=== PATIENT | female | born 2000 | race Two or more races ===

== ENCOUNTER 2023-06-09 12:33 | Inpatient (IN) | payer MEDICAID, OTHER ==
[2023-06-09] VITALS (9 sets, daily range): BP systolic 92–102; BP diastolic 50–57; PULSE 64–97; RESP 15–20; TEMP 98.1–98.3; O2SAT 93–100
[~2023-06-09] VITALS: Ht 162.6 cm; Wt 55.0 kg
[2023-06-09 13:08] LABS: Basophils # (auto) 0.1 10 ^3/uL (0-0.2); Basophils % (auto) 0.4 % (0.0-2.0); Eosinophils # (auto) 0 10 ^3/uL (0-0.8); Eosinophils % (auto) 0.2 % (0.0-7.0); Hematocrit 30.2 % (36.0-46.0); Hemoglobin 9.6 g/dL (12.2-16.2); Lymphocytes # (auto) 2.6 10 ^3/uL (0.4-5.4); Mean Corpuscular Hemoglobin 28.2 pg (28.0-32.0); Mean Corpuscular Hgb Conc. 31.8 g/dL (32.0-36.0); Mean Corpuscular Volume 88.6 fL (80.0-100.0); Monocytes # (auto) 0.8 10 ^3/uL (0-1.3); Monocytes % (auto) 4.2 % (0.0-12.0); Neutrophils # (auto) 16.1 10 ^3/uL (1.6-8.6); Neutrophils % (auto) 82.2 % (37.0-80.0); Red Blood Cells 3.41 10^6/uL (4.0-5.20); Red Cell Distribution Width 15.3 % (11.8-14.3); White Blood Cell 19.6 10^3/uL (4.4-10.8)
[2023-06-09 13:22] LABS: Alanine Aminotransferase 16 U/L (7-40); Albumin 3.5 g/dL (3.2-4.8); Alkaline Phosphatase 62 U/L (46-116); Anion Gap 10 (5-15); Aspartate Aminotransferase 10 U/L (13-40); Bilirubin, Total 0.3 mg/dL (0.2-1.0); Blood Urea Nitrogen 18 mg/dL (9-23); Calcium 8.7 mg/dL (8.7-10.4); Carbon Dioxide 20 mmol/L (20-30); Chloride 108 mmol/L (98-107); Glucose 184 mg/dL (74-106); Magnesium 1.7 mg/dL (1.6-2.6); Potassium 4.2 mmol/L (3.5-5.1); Sodium 138 mmol/L (136-145); Total Protein 5.4 g/dL (5.7-8.2)
[2023-06-09] MEDS: SODIUM CHLORIDE 0.9% 1,000 ML IV ONE ×2 (14:04→14:21)
[2023-06-09 14:41] LABS: Basophils # (auto) 0 10 ^3/uL (0-0.2); Basophils % (auto) 0.2 % (0.0-2.0); Eosinophils # (auto) 0 10 ^3/uL (0-0.8); Monocytes # (auto) 0.5 10 ^3/uL (0-1.3); Neutrophils % (auto) 90.6 % (37.0-80.0)
[2023-06-09 14:43] LABS: Hematocrit 24.6 % (36.0-46.0); Lymphocytes # (auto) 1.2 10 ^3/uL (0.4-5.4); Lymphocytes % (auto) 6.3 % (10.0-50.0); Mean Corpuscular Hemoglobin 28.7 pg (28.0-32.0); Mean Corpuscular Hgb Conc. 32.7 g/dL (32.0-36.0); Mean Corpuscular Volume 87.8 fL (80.0-100.0); Monocytes % (auto) 2.9 % (0.0-12.0); Neutrophils # (auto) 16.5 10 ^3/uL (1.6-8.6); Red Cell Distribution Width 14.7 % (11.8-14.3); White Blood Cell 18.3 10^3/uL (4.4-10.8)
[2023-06-09] MEDS ORDERED: PIPERACILLIN-TAZOB 3.375GM 100 ML IV ONE (15:00)
[2023-06-09 15:38] LABS: Hematocrit 20.3 % (36.0-46.0)
[2023-06-09] MEDS ORDERED: HYDROcodone-ACET 5/325MG TAB PO PRN (15:45)
[2023-06-09] MEDS ORDERED: ACETAMINOPHEN 325 MG TAB PO PRN (15:45)
[2023-06-09] MEDS ORDERED: SODIUM CHLORIDE 0.9% 1,000 ML IV SCH (15:45)
[2023-06-09 15:49] LABS: Hemoglobin 6.7 g/dL (12.2-16.2)
[2023-06-09] MEDS ORDERED: HYDROmorphone HCL 2 MG/ML VL/or syr ONE (16:13)
[2023-06-09] MEDS ORDERED: MIDAZOLAM HCL 2MG/2ML 2ml VIAL (1mg/ml) ONE (16:13)
[2023-06-09] MEDS ORDERED: fentaNYL CITRATE 100 MCG/2 ML VL ONE (16:13)
[2023-06-09] MEDS ORDERED: DexAMETHasone SOD PHOS 10MG/1ML VIAL INJ ONE (16:14)
[2023-06-09] MEDS ORDERED: ePHEDrine SULFATE 50 MG/ML AMP ONE (16:14)
[2023-06-09] MEDS ORDERED: KETOROLAC TROMETH 30 MG/ML 1ML VIAL ONE (16:14)
[2023-06-09] MEDS ORDERED: GLYCOPYRROLATE 0.2 MG/ML 1ML VIAL ONE (16:14)
[2023-06-09] MEDS ORDERED: LIDOCAINE 2% (LOCAL ANESTH.) PF 5ml SDV ONE (16:14)
[2023-06-09] MEDS ORDERED: PROPOFOL 10 MG/ML 20 ML IV ONE (16:14)
[2023-06-09] MEDS ORDERED: ONDANSETRON HCL 4 MG/2 ML VIAL ONE (16:14)
[2023-06-09] MEDS ORDERED: LACT. RINGERS/OXYTOCIN 20UNITS 1,000 ML IV ONE (16:15)
[2023-06-09] MEDS ORDERED: SUCCINYLCHOLINE CHLORIDE 20 MG/ML 10ML VIAL IV ONE (16:15)
[2023-06-09] MEDS ORDERED: ceFAZolin 1GM/50ML 50 ML IV ONE (16:40)
[2023-06-09 17:00] LABS: INR 1.16 (0.9-1.15); Prothrombin Time 12.1 sec (9.3-11.8)
[2023-06-09] MEDS: LACT. RINGERS/OXYTOCIN 20UNITS 1,000 ML IV ONE (17:40)
[2023-06-09] MEDS ORDERED: HYDROmorphone HCL 2 MG/ML VL/or syr IV PRN (17:45)
[2023-06-09] MEDS ORDERED: FAMOTIDINE (10MG/ML) 2ML VL IV ONE (17:45)
[2023-06-09] MEDS: PIPERACILLIN-TAZOB 3.375GM 100 ML IV SCH (21:21)
[2023-06-09] MEDS: ONDANSETRON HCL 4 MG/2 ML VIAL IV ONE (21:28)
[2023-06-10] VITALS (12 sets, daily range): BP systolic 86–106; BP diastolic 42–60; PULSE 72–85; RESP 16–20; TEMP 37.1; O2SAT 93–98
[2023-06-10] MEDS: SODIUM CHLORIDE 0.9% 1,000 ML IV SCH (02:37)
[2023-06-10] MEDS ORDERED: ESCI1TAB36 PO (03:52)
[2023-06-10] MEDS ORDERED: BUSP7.5T8 PO (03:52)
[2023-06-10] MEDS ORDERED: DOXY50CA PO (03:52)
[2023-06-10] MEDS ORDERED: [UNRECOGNIZED DRUG - CODE] EX (03:52)
[2023-06-10 06:55] LABS: Urine Bacteria None Seen /hpf (None Seen)
[2023-06-10 06:58] LABS: Basophils # (auto) 0 10 ^3/uL (0-0.2); Basophils % (auto) 0.2 % (0.0-2.0); Eosinophils # (auto) 0 10 ^3/uL (0-0.8); Hematocrit 28.7 % (36.0-46.0); Hemoglobin 9.4 g/dL (12.2-16.2); Mean Corpuscular Hemoglobin 28.3 pg (28.0-32.0); Mean Corpuscular Hgb Conc. 32.9 g/dL (32.0-36.0); Monocytes # (auto) 0.4 10 ^3/uL (0-1.3); Monocytes % (auto) 3.6 % (0.0-12.0); Neutrophils % (auto) 87.2 % (37.0-80.0); Red Blood Cells 3.33 10^6/uL (4.0-5.20); Red Cell Distribution Width 16.2 % (11.8-14.3); White Blood Cell 11.5 10^3/uL (4.4-10.8)
[2023-06-10 07:08] LABS: Urine Blood 3+ /uL (Negative); Urine Clarity Turbid (Clear); Urine Color Light-Brown (Yellow); Urine Protein, UAD 1+ (Negative); Urine Specific Gravity 1.025 (1.001-1.035); Urine Urobilinogen Normal (Negative); Urine WBC 32 /hpf (0 - 5)
[2023-06-10 07:17] LABS: Amphetamine Screen, Urine Neg (NEGATIVE); Barbiturate Scree,Urine Neg (NEGATIVE); Benzodiazephine Screen, Urine Pos (NEGATIVE); Cannabinoid Screen, Urine Pos (NEGATIVE); Cocaine Screen, Urine Neg (NEGATIVE); Opiate Scree,Urine Neg (NEGATIVE); Phencyclidine Screen, Urine Neg (NEGATIVE)
[2023-06-10 07:18] LABS: Alanine Aminotransferase 11 U/L (7-40); Albumin 2.9 g/dL (3.2-4.8); Alkaline Phosphatase 47 U/L (46-116); Anion Gap 3 (5-15); Aspartate Aminotransferase 17 U/L (13-40); BUN/Creatinine Ratio 11.1 (10.0-20.0); Bilirubin, Total 0.5 mg/dL (0.2-1.0); Calcium 7.1 mg/dL (8.5-10.1); Carbon Dioxide 24 mmol/L (20-30); Chloride 112 mmol/L (98-107); Glucose 113 mg/dL (74-106); Sodium 139 mmol/L (136-145); Total Protein 4.2 g/dL (5.7-8.2)
[2023-06-10 07:28] LABS: Blood Urea Nitrogen 7 mg/dL (9-23)
== END 2023-06-10 14:35 | disposition home or self-care (01) | DRG 543 ==
LOC: ER 12:33 → TELE 15:46 → TELE-EAST 18:56
PROVIDERS: ADMIT Nurse Practitioner Family; ATTEND Obstetrics & Gynecology
PROC: 30233K1 Transfusion of Nonautologous Frozen Plasma into Peripheral Vein, Percutaneous Approach (ICD-10-PCS; 2023-06-09)
PROC: 30233N1 Transfusion of Nonautologous Red Blood Cells into Peripheral Vein, Percutaneous Approach (ICD-10-PCS; 2023-06-09)
PROC: 10D17ZZ Extraction of Products of Conception, Retained, Via Natural or Artificial Opening (ICD-10-PCS; principal; 2023-06-09 16:45)
DX: O03.37 Sepsis following incomplete spontaneous abortion (principal); O03.33 Metabolic disorder following incomplete spontaneous abortion; R71.0 Precipitous drop in hematocrit; E86.1 Hypovolemia; Z90.49 Acquired absence of other specified parts of digestive tract; O03.1 Delayed or excessive hemorrhage following incomplete spontaneous abortion; E87.6 Hypokalemia; O03.39 Incomplete spontaneous abortion with other complications
CPT/HCPCS: 36415; 76801; 80053; 80307; 81001; 83036; 83605; 83735; 84702; 85014; 85018; 85025; 85610; 86850; 86900; 86901; 86920; 87040; 87086; 96360; 99291; G0378; J0330; J1100; J1885; J2001; J2250; J2405; J2543; J2704